=== PATIENT | female | born 1965 | race Caucasian/White ===

== ENCOUNTER → 2017-04-28 | Outpatient (CLI) | payer OTHER | LOC: CIMAGING 07:52 | PROVIDERS: ATTEND Family Medicine | DX: Z12.31 Encounter for screening mammogram for malignant neoplasm of breast (principal) | CPT/HCPCS: G0202 ==

== ENCOUNTER → 2017-05-08 | Outpatient (CLI) | payer OTHER | LOC: CIMAGING 13:57 | PROVIDERS: ATTEND Family Medicine | DX: Z12.39 Encounter for other screening for malignant neoplasm of breast (principal); R92.8 Other abnormal and inconclusive findings on diagnostic imaging of breast | CPT/HCPCS: 76641-PO ==

== ENCOUNTER → 2017-10-30 | Outpatient (CLI) | payer OTHER | LOC: CIMAGING 13:00 | PROVIDERS: ATTEND Family Medicine | DX: N60.01 Solitary cyst of right breast (principal) | CPT/HCPCS: 76641-PO ==

== ENCOUNTER → 2018-05-02 | Outpatient (CLI) | payer OTHER | LOC: FIMAGING 12:59 | PROVIDERS: ATTEND Family Medicine | DX: Z12.31 Encounter for screening mammogram for malignant neoplasm of breast (principal); Z98.82 Breast implant status; R92.8 Other abnormal and inconclusive findings on diagnostic imaging of breast ==